=== PATIENT | male | born 1990 | race Caucasian/White ===

== ENCOUNTER 2019-11-11 11:51 | Outpatient (CLI) | payer OTHER, SELFPAY ==
--- NOTE | 2019-11-11 12:05 | XR_ITS ---
WS: [id number] Chest 2 views, 11/11/2019 Clinical Data: FEVER,COUGH Comparison: Portable chest, 01/16/2014. Findings: No nodules, masses or effusions are seen. The heart is normal. The pulmonary vascularity is not increased. No pneumonia or pneumothorax is seen. XR/XR chest 2V* [id number] Impression: Negative chest.
== END 2019-11-11 11:52 | disposition home or self-care (01) ==
LOC: RADWPI 11:57
PROVIDERS: PCP Nurse Practitioner Family; Visit Provider Nurse Practitioner Family
DX: R50.9 Fever, unspecified (principal); R05 Cough
CPT/HCPCS: 71046

== ENCOUNTER 2022-07-25 19:27 | Emergency (ER) | payer OTHER, SELFPAY ==
[2022-07-25 19:33] VITALS: BP 156/95; PULSE 90; RESP 16; TEMP 36.3; O2SAT 97; BMI 23.6
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
[2022-07-25] MEDS: HYDROcodone-acetaminophen 5-325 mg Tablet 1 TAB PO (20:21)
[2022-07-25] MEDS: amoxicillin-clav 875-125 mg Tablet 1 TAB PO (20:21)
== END 2022-07-25 20:27 | disposition home or self-care (01) ==
PROVIDERS: Emergency Provider Nurse Practitioner Family; PCP Nurse Practitioner Family
DX: K04.7 Periapical abscess without sinus (principal)
CPT/HCPCS: 99283

== ENCOUNTER 2023-03-15 19:53 | Emergency (ER) | payer OTHER, SELFPAY ==
[2023-03-15 20:01] VITALS: BP 142/89; PULSE 83; RESP 18; TEMP 36.7; O2SAT 99; BMI 23.6
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
[2023-03-15] MEDS: tetanus-diphtheria tox (adult) 0.5 mL SDV IM (21:01)
[2023-03-15] MEDS: amoxicillin-clav 875-125 mg Tablet 1 TAB PO (22:23)
== END 2023-03-15 22:24 | disposition home or self-care (01) ==
PROVIDERS: Emergency Provider Nurse Practitioner; PCP Nurse Practitioner Family
DX: M25.541 Pain in joints of right hand (principal); S61.411A Laceration without foreign body of right hand, initial encounter; Y04.2XXA Assault by strike against or bumped into by another person, initial encounter; Z23 Encounter for immunization
CPT/HCPCS: 73130; 90471; 90714; 99283

== ENCOUNTER 2023-08-01 22:32 | Emergency (ER) | payer SELFPAY ==
[2023-08-01 22:38] VITALS: BP 148/91; PULSE 93; RESP 20; TEMP 36.3; O2SAT 99; BMI 19.8
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
[2023-08-02 00:34] VITALS: BP 125/78
--- NOTE | 2023-08-04 08:56 | DCPLANNER ---
Referral was sent to ortho on 08/04/23 at 0858. Clinic to contact patient.
== END 2023-08-02 00:36 | disposition home or self-care (01) ==
PROVIDERS: Emergency Provider Nurse Practitioner; PCP Nurse Practitioner Family
DX: S62.314A Displaced fracture of base of fourth metacarpal bone, right hand, initial encounter for closed fracture (principal); Y04.2XXA Assault by strike against or bumped into by another person, initial encounter; Y92.143 Cell of prison as the place of occurrence of the external cause
CPT/HCPCS: 29125; 73100; 73130; 99283

== ENCOUNTER 2025-03-06 12:48 | Inpatient (IN) | payer SELFPAY ==
[2025-03-06 12:52] VITALS: BP 149/85; PULSE 124; RESP 16; TEMP 36.8; O2SAT 100; BMI 22.6
--- OUTSIDE RECORDS SUMMARY | 2025-03-06 12:53 | XMS_ITS | Clinical Summary ---
Author Organization [facility] Address [address] [place]: Epic Prelude ADT SHAZIA RAMIREZ [id number] Care Team Providers Care Casework Manager Name Role Phone Ami Peña MD Primary Care Provider Allergies Active Allergy Reactions Criticality Noted Date Comments Maple Flavor Itching,Swelling High 10/18/2015 Tramadol Nausea and Vomiting Low 11/08/2016 Unclassified Drug Hives High 10/18/2015 Medications gabapentin (NEURONTIN) 300 mg capsule Take 1 Capsule (300 mg) by mouth 3 times daily Start by taking only 1 capsule for the first 2 days. Then take 2 capsules for day 3 & 4, on day 5 you can start taking 3 capsules a day.. 90 Capsule 0 12/31/2016 Active ascorbic acid (VITAMIN C) 500 mg Tablet, Chewable Take 500 mg by mouth daily. 09/19/2016 Active Active Problems Problem Noted Date Diagnosed Date Ligamentous laxity of shoulder 06/04/2016 Superior glenoid labrum lesion of right shoulder 06/04/2016 Acute pain of right shoulder 06/04/2016 Tobacco use 10/18/2015 Resolved Problems Problem Noted Date Diagnosed Date Resolved Date Depression 10/12/2008 10/18/2015 Immunizations Immunization Administration Dates Next Due (M-M-R II/PRIORIX)(12 MO UP) MEASLES, MUMPS AND RUBELLA VIRUS VACCINE, 0.5 ML IM/SUBCUT 01/27/1996,09/24/1994 Dt Dtp Dtap Vaccine 04/02/2006, 6,01/07/1995,1994,03/01/1992 HIB, Unspecified Formulation 09/24/1994,03/01/19 92 Hepatitis B Vaccine 01/14/1996,07/23/1995,1994 IPV/OPV 01/27/1996, 5,09/24/1994,1991 Family History Medical History Relation Name Comments Hypertension Maternal Grandmother Relation Name Status Comments Maternal Grandmother Social History Tobacco Use Types Packs/Day Years Used Date Smoking Tobacco: Every Day Cigarettes Smokeless Tobacco: Former Alcohol Use Standard Drinks/Week Comments No 0 (1 standard drink = 0.6 oz pur e alcohol) Sex and Gender Information Value Date Recorded Sex Assigned at Not on file Legal 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 Gender Identity Not on file Sexual Orientation Not on file Last Filed Vital Signs Vital Sign Reading Time Taken Comments Blood Pressure 114/69 02/11/2017 10:04 AM CDT Pulse 65 02/11/2017 10:04 AM CDT Temperature 37.1 C (98.8 F) 09/30/2016 1:45 PM CHOCOLATE REFINING ROLLER Respiratory Rate 17 09/30/2016 1:00 PM CHOCOLATE REFINING ROLLER Oxygen Saturation - - Inhaled Oxygen Concentration - - Weight 57.6 kg (127 lb) 02/11/2017 10:04 AM CDT Height 175.3 cm (5' 9 ) 02/11/2017 10:04 AM CDT Body Mass Index 18.75 02/11/2017 10:04 AM CDT Plan of Treatment Health Maintenance Due Date Last Done Comments DTAP/TDAP/TD VACCINES (6 - Tdap) 04/02/2016 04/02/2006, 01/27/1996, 01/07/1995, Additional history exists INFLUENZA VACCINE (#1) 2025 HEPATITIS B VACCINES Completed 01/14/1996, 07/23/1995, 06/24/1995 HPV VACCINES Aged Out No longer eligi ble based on patient's age to complete this topic Medical Devices Implanted Type Area Location Man Device Identifier Shelf Expiration Date Model / Serial / Lot Banco Sut Fibertak #2 Fbrwr Ar-3600 - [id number] Implanted:Qty: 1 on 09/30/2016 by Robb Gage III, MD Banco Right: Shoulder [employer] 04/18/2021 AR-3600 / / [id number] B[employer] Sut Fibertak #2 Fbrwr Ar-3600 - [id number] Implanted:Qty: 1 on 09/30/2016 by Robb Gage III, MD Banco Right: Shoulder [employer] 04/18/2021 AR-3600 / / [id number] Anchr Tnds Biocmp Swvlck 7mm [id number] - [id number] Implanted:Qty: 1 on 09/30/2016 by Robb Gage III, MD Banco Right: Shoulder [employer] 05/17/2018 [id number] -[id number] / / [id number] Care Teams Casework Manager Relationship Specialty Start Date End Date Ami Peña MD [address] [id number] PCP - General Family Practice 10/01/16
--- OUTSIDE RECORDS SUMMARY | 2025-03-06 12:53 | XMS_ITS | Clinical Summary ---
Author Organization [facility] (Formerly [facility]) [place] Address [address] [place] [address] Care Team Providers Care Thermodynamics Professor Name Role Phone Ami Peña MD Primary Care Provider Allergies Active Allergy Reactions Criticality Noted Date Comments Maple Flavor Itching,Swelling High 10/18/2015 Tramadol Nausea and Vomiting Low 11/08/2016 Unclassified Drug Hives High 10/18/2015 Medications ascorbic acid, vitamin C, (VITAMIN C) 500 mg Tablet, Chewable Take 500 mg by mouth daily. Active gabapentin (NEURONTIN) 300 mg capsule Take 1 Capsule (300 mg) by mouth 3 times daily Start by taking only 1 capsule for the first 2 days. Then take 2 capsules for day 3 & 4, on day 5 you can start taking 3 capsules a day.. 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 Gender Identity Not on file Sexual Orientation Not on file Occupation Industry Job Start Date Job End Date Not on file Not on file Not on file Not on file Not on file Not on file Not on file Not on file Last Filed Vital Signs Vital Sign Reading Time Taken Comments Blood Pressure 114/69 02/11/2017 10:04 AM CDT Pulse 65 02/11/2017 10:04 AM CDT Temperature 37.1 C (98.8 F) 09/30/2016 1:45 PM ORACLE FINANCIAL APPLICATION DEVELOPER Respiratory Rate 17 09/30/2016 1:00 PM ORACLE FINANCIAL APPLICATION DEVELOPER Oxygen Saturation 94% 09/30/2016 1:45 PM [employer]ACLE FINANCIAL APPLICATION DEVELOPER Inhaled Oxygen Concentration - - Weight 57.6 kg (127 lb) 02/11/2017 10:04 AM CDT Height 175.3 cm (5' 9 ) 02/11/2017 10:04 AM CDT Body Mass Index 18.75 02/11/2017 10:04 AM CDT Plan of Treatment Health Maintenance Due Date Last Done Comments HPV VACCINES (1 - Male 3-dos e series) 12/22/2006 DTAP/TDAP/TD VACCINES (6 - Tdap) 04/02/2016 04/02/2006, 01/27/1996, 01/07/1995, Additional history exists INFLUENZA VACCINE (#1) 2025 HEPATITIS B VACCINES Completed 01/14/1996, 07/23/1995, 06/24/1995 Medical Devices Implanted Type [employer] Device Identifier Shelf Expiration Date Model / Serial / Lot Anchr Tnds Biocmp Swvlck 7mm [id number] - [id number] Implanted:Qty: 1 on 09/30/2016 by Robb Gage III, MD at [facility] [place] Right: Shoulder [employer] 05/17/2018 [id number] -[id number] / / [id number] [place] Sut Fibertak #2 Fbrwr Ar-3600 - [id number] Implanted:Qty: 1 on 09/30/2016 by Robb Gage III, MD at [facility] [place] Right: Shoulder [employer] 04/18/2021 AR-3600 / / [id number] [place] Sut Fibertak #2 Fbrwr Ar-3600 - [id number] Implanted:Qty: 1 on 09/30/2016 by Robb Gage III, MD at [facility] [place] Right: Shoulder [employer] 04/18/2021 AR-3600 / / [id number] Advance Directives For more information, please contact: [phone] * Full Code (Latest Code Status on File) Date Activated Date Inactivated Comments 09/30/2016 8:47 AM 09/30/2016 4:16 PM Care Teams Thermodynamics Professor Relationship Specialty Start Date End Date Ami Peña MD [address] [phone] PCP - General Family Practice 10/01/16
--- OUTSIDE RECORDS SUMMARY | 2025-03-06 12:53 | XMS_ITS | Encounter Summary ---
Author Organization [facility] Address [address] [place] [address] Care Team Providers Care Shot Core Drill Operator Name Role Phone Ami Peña MD Primary Care Provider [phone] Encounter Details Date Type Department Care Team (Latest Contact Info) Description 06/21/2016 Ancillary Orders [facility] Orthoped[facility] - [facility] [address] [place] [address] Fuad Martinez MD [address] [place] [address] Acute pain of right shoulder (Primary Dx); Ligamentous laxity of shoulder, right; Superior glenoid labrum lesion of right shoulder, initial encounter Social History Tobacco Use Types Packs/Day Years Used Date Smoking Tobacco: Every Day Cigarettes E-Cigarette/Mist Inh alation Device Smokeless Tobacco: Former Alcohol Use Standard Drinks/Week Comments No 0 (1 standard drink = 0.6 oz pure alcohol) history of alcohol abuse in childhood Sex and Gender Information Value Date Recorded Sex Assigned at Not on file 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 Exam: XR SHOULDER 2+ VW RIGHT Date/Time of Exam: 06/21/2016 1:56 PM Reason For Exam: Acute pain of right shoulder,Ligamentous laxity of shoulder, right,Superior glenoid labrum lesion of right shoulder, initial encounter. Findings: 0.2 mL Optimark contrast and 5 mL Conray 60 contrast was injected into the right glenohumeral joint. Images confirm the intra-articular injection of contrast. Please see the MRI of the same day. [id number] Narrative Procedure Note Loreta Coyle MD - 06/21/2016 IMPRESSION IMPRESSION: Please see below. Exam: XR SHOULDER 2+ VW RIGHT Date/Time of Exam: 06/21/2016 1:56 PM Reason For Exam: Acute pain of right shoulder,Ligamentous laxity of shoulder, right,Superior glenoid labrum lesion of right shoulder, initial encounter. Findings: 0.2 mL Optimark contrast and 5 mL Conray 60 contrast was injected into the right glenohumeral joint. Images confirm the intra-articular injection of contrast. Please see the MRI of the same day. [id number] Fuad Martinez MD DIAGNOSTIC IMAGING ORDERABLES Final Result documented in this encounter Visit Diagnoses Diagnosis Acute pain of right shoulder- Primary Ligamentous laxity of shoulder, right Superior glenoid labrum lesion of right shoulder, initial encounter Acute pain of right shoulder Ligamentous laxity of shoulder, right Superior glenoid labrum lesion of right shoulder, initial encounter documented in this encounter Care Teams Shot Core Drill Operator Relationship Specialty Start Date End Date Ami Peña MD [address] [phone] PCP - General Family Practice 10/01/16 documented as of this encounter
[2025-03-06 13:17] VITALS: O2SAT 98
--- NOTE | 2025-03-06 13:25 | ED.C_ITS ---
HPI - Psych 2 General: Chief Complaint: Psychiatric Symptoms Stated Complaint: mhe Time Seen by Provider: 03/06/25 12:49 History of Present Illness: This patient is a 34 year old brought in by police. The patient is angry and not forthcoming with history during my interview. He says that his took it too far . He says that he just wanted to take his own medication that is prescribed for him - but didn't tell me why that prompted her to call the police. He told me they were having an arguement. His is also writing an affidavit. The patient is angry because he is on parole and is concerned that him being here is going to make everything worse. Related Data Previous Rx's ?Medication ?Instructions ?Recorded trazodone 50 mg tablet 100 mg (2 x 50 mg) PO .HS MI N 11/03/24 insomnia #60 tabs paroxetine HCl 20 mg tablet (Paxil) 20 mg PO DAILY #30 tabs 12/16/24 Allergies Allergy/AdvReac Type Severity Reaction Status Date / Time No Known Allergies Allergy Verified 12/16/24 13:14 [facility] ED 2 PFSH: Medical History (Updated 03/06/25 @ 18:34 by Sandy Barkley MD) Psychiatric care Physical Exam 2 Const: COMMON NORMALS: alert HENMT: HEAD & SCALP: normal to inspection FACE & SINUS: normal facial exam Eye: GENERAL EYE: appearance normal, both eyes and all related structures Chest: COMMONS NORMALS: normal inspection of the chest Resp: COMMON NORMALS: normal respiratory effort and No use of accessory muscles Extremity: COMMON NORMALS: normal to inspection Neuro: COMMON NORMALS: moves all extremities and no focal motor deficits S ENSORIUM/ORIENTATION: Yes alert Psych: ATTITUDE: Yes Belligerent attititude/behavior present and Yes aggressive MOOD & AFFECT: Yes irritable and Yes Other affect and mood findings present (angry, aggressive) INSIGHT: Limited insight present (Psych) Skin: COMMON NORMALS: no rashes or lesions noted and turgor normal GENERAL SKIN EXAM: no rashes or lesions noted and turgor normal Course 2 Vital Signs: Vital signs: Vital Signs Temperature 98.2 F 03/06/25 14:28 Pulse Rate 94 03/06/25 14:28 Respiratory Rate 18 03/06/25 14:28 Blood Pressure 139/82 03/06/25 14:28 Pulse Oximetry 98 07/20/25 14:28 Oxygen Delivery Me thod Room Air 03/06/25 14:30 MDM - Psych Medical Decision Making Patient's wrote a affidavit reporting his suicidal statements. He will be admitted to the [facility] for further evaluation and treatment. Lab Data 03/06/25 13:23 03/06/25 13:23 Laboratory Results WBC 5.97 10^3/uL (3.29-11.43) 03/06/25 13:23 RBC 5.04 10^6/uL (3.85-5.65) 03/06/25 13:23 Hgb 15.40 g/dL (11.27-16.99) 03/06/25 13:23 Hct 44.4 % (37-53) 03/06/25 13:23 MCV 88.1 fl (82-101) 03/06/25 13:23 MCH 30.6 pg (27-33) 03/06/25 13:23 MCHC 34.7 g/dL (30-55) 03/06/25 13:23 RDW 13.3 % (12.1-15.1) 03/06/25 13:23 Plt Count 341 10^3/cmm (157-399) 03/06/25 13:23 MPV 9.5 fL (7.4-10.4) 03/06/25 13:23 Neut % (Auto) 50.9 % 03/06/25 13:23 Lymph % (Auto) 36.9 % 03/06/25 13:23 Dewey % (Auto) 10.9 % 03/06/25 13:23 Eos % (Auto) 0.8 % 03/06/25 13:23 Baso % (Auto) 0.3 % 03/06/25 13:23 Neut # (Auto) 3.04 10^3/uL (1.8-7.7) 03/06/25 13:23 Lymph # (Auto) 2.2 10^3/uL (0.8-4.8) 03/06/25 13:23 Dewey # (Auto) 0.7 10^3/uL (0.2-0.9) 03/06/25 13:23 Eos # (Auto) 0.1 10^3/uL (0.0-0.8) 03/06/25 13:23 Baso # (Auto) 0.0 10^3/uL (0.0-0.1) 03/06/25 13:23 Nucleated RBC % (auto) 0 % 03/06/25 13:23 Nucleated RBCs # 0.0 /100WBC 03/06/25 13:23 Sodium 143 mmol/L (136-145) 03/06/25 13:23 Potassium 3.9 mmol/L (3.5-5.1) 03/06/25 13:23 Chloride 104 mmol/L (98-107) 03/06/25 13:23 Carbon Dioxide 27 mmol/L (22-29) 03/06/25 13:23 Anion Gap 15.9 (5-19) 03/06/25 13:23 BUN 20 mg/dL (6-20) 03/06/25 13:23 Creatinine 0.7 mg/dL (0.7-1.2) 03/06/25 13:23 GFR Calculation 129.9 mL/min (90-130) 03/06/25 13:23 Glucose 105 mg/dL (65-115) 03/06/25 13:23 Calculated Osmolality 299 mOsm/kg (285-295) H 03/06/25 13:23 Calcium 9.6 mg/dL (8.5-10.5) 03/06/25 13:23 Total Bilirubin 0.6 mg/dL (0.15-1.2) 03/06/25 13:23 AST 22 U/L (0-40) 03/06/25 13:23 ALT 19 U/L (0-41) 03/06/25 13:23 Alkaline Phosphatase 107 U/L (40-130) 03/06/25 13:23 Total Protein 7.7 g/dL (6.6-8.7) 03/06/25 13:23 Albumin 4.7 g/dL (3.5-5.2) 03/06/25 13:23 Globulin 3.0 g/dL (1.3-4.6) 03/06/25 13:23 Salicylates < 0.3 mg/dL (3-10) L 03/06/25 13:23 Acetaminophen < 5.0 ug/mL (10-30) L 03/06/25 13:23 Ethyl Alcohol < 10 mg/dL (0-10) 03/06/25 13:23 All radiology interpretation(s) finalized by discharge Discharge Plan Discharge Patient Disposition: Admitted As Inpatient Admit Provider: John Curtis Clinical Impression: Suicidal ideation Condition: Stable Coding Level of Care Code ED Diver Tender for Jessica Christiansen
[2025-03-06 13:39] LABS: Hematocrit 44.4 % (37-53); Hemoglobin 15.40 g/dL (11.27-16.99); Mean Corpuscular HGB Conc 34.7 g/dL (30-55); Mean Corpuscular Hemoglobin 30.6 pg (27-33); Mean Corpuscular Volume 88.1 fl (82-101); Nucleated Red Blood Cells % 0 %; Platelet Count 341 10^3/cmm (157-399); Red Blood Count 5.04 10^6/uL (3.85-5.65); White Blood Count 5.97 10^3/uL (3.29-11.43)
[2025-03-06 13:56] LABS: Alanine Aminotransferase 19 U/L (0-41); Albumin Level 4.7 g/dL (3.5-5.2); Alkaline Phosphatase 107 U/L (40-130); Anion Gap 15.9 (5-19); Aspartate Amino Transferase 22 U/L (0-40); Blood Urea Nitrogen 20 mg/dL (6-20); Calcium 9.6 mg/dL (8.5-10.5); Carbon Dioxide 27 mmol/L (22-29); Chloride 104 mmol/L (98-107); Creatinine Clr Calc Pharmacy 135.1962; Globulin 3.0 g/dL (1.3-4.6); Glucose 105 mg/dL (65-115); Osmolality Calculated 299 mOsm/kg (285-295); Potassium 3.9 mmol/L (3.5-5.1); Sodium 143 mmol/L (136-145); Total Protein 7.7 g/dL (6.6-8.7)
[2025-03-06 13:57] LABS: Acetaminophen < 5.0 ug/mL (10-30); Alcohol Level < 10 mg/dL (0-10); Salicylate < 0.3 mg/dL (3-10)
[2025-03-06 14:28] VITALS: BP 139/82; PULSE 94; RESP 18; TEMP 36.8; O2SAT 98
--- NOTE | 2025-03-06 15:08 | PC.ADMIT ---
[address] [facility] Admission Note: The patient,Codi Suh,34 y/o, was given written information regarding hospital policies, unit procedures and contact persons. Patient's smoking status: . Vital Signs - 8 hr 03/06/25 12:52 03/06/25 13:17 03/06/25 14:30 Temperature 98.2 F Pulse Rate 124 H Respiratory Rate 16 Blood Pressure 149/85 Pulse Oximetry 100 98 Oxygen Delivery Method Room Air Room Air Room Air Pt. was broutht in by police. filled out an affidavit stating he took more than the prescribed amount of Trazadone after a arguement they got into. Pt. is placed on a 96 hr hold and is very aggitated about this and has been mostly uncooperative with the assessment stating he was not going to answer any questions, although he did answer some. Pt. refused to change out in front of signee and POLICE MAGISTRATE. Security was present and pt. did change out in front of security. Security stated pt. has no skin issues and no contraband was on pt. Pt. says he does not have transportation. Security reports pt. has been in retirement before. Pt. denies any suicid attemts presently or in the past. Pt. refused a UA and would not answer any questions about drug or alcohol use. Pt. arrived the NPU at 1428 today.
--- NOTE | 2025-03-06 15:41 | PC.NURSE ---
Security presented with display card writer (warehouse receiver) to read the patient his 96 hour hold rights. Fruit [employer] Nut Cro[employer] Farm Manager began reading them and the patient stated that he didn't want to hear them and that he didn't care ad didn't do anything wrong . Patient became more verbally aggressive asking display card writer and security to leave because we were pissing him off. Security asked patient if they would like a copy of their rights and patient answered no. Security told patient that he would put the rights with his personal belongings.
--- NOTE | 2025-03-06 22:11 | PC.NURSE ---
pt refused vs, charge nurse notified, resp 17
--- NOTE | 2025-03-07 06:43 | PC.NURSE ---
vs not completed per charge nurse resp 16
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
--- NOTE | 2025-03-07 07:56 | PC.NURSE ---
Pt. refused to give UA and stated he would give a UA to his ict help desk officer and him only.
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
[2025-03-07 18:03] VITALS: BP 139/82; PULSE 4; RESP 18; TEMP 36.8; O2SAT 98
== END 2025-03-07 14:04 | disposition left against medical advice (07) | DRG 880 ==
LOC: ER 13:39 → NP 14:20
PROVIDERS: Admitting Provider Psychiatry & Neurology Psychiatry; Emergency Provider Emergency Medicine; PCP Nurse Practitioner Family; Visit Provider Psychiatry & Neurology Psychiatry
DX: F41.1 Generalized anxiety disorder (principal); F15.20 Other stimulant dependence, uncomplicated; R45.851 Suicidal ideations; F12.90 Cannabis use, unspecified, uncomplicated; Z53.29 Procedure and treatment not carried out because of patient's decision for other reasons
CPT/HCPCS: 36415; 80053; 80307; 85025; 97165; 99285

== ENCOUNTER 2025-03-07 15:49 | Inpatient (IN) | payer SELFPAY ==
--- OUTSIDE RECORDS SUMMARY | 2025-03-07 15:56 | XMS_ITS | Clinical Summary ---
Author Organization [facility] Address [address] [place] [place] [address] Care Team Providers Care Assistant Front Desk Manager Name Role Phone Ami Peña MD [...] on file Legal Sex Male 2:50 AM ASSESSMENT CONSULTANT Gender Identity Not on file Sexual Orientation [...] 37.1 C (98.8 F) 09/30/2016 1:45 PM ASSESSMENT CONSULTANT Respiratory Rate 17 09/30/2016 1:00 PM ASSESSMENT CONSULTANT Oxygen Saturation 94% 09/30/2016 1:45 PM ASSESSMENT CONSULTANT Inhaled Oxygen Concentration - - Weight 57.6 [...] 07/23/1995, 06/24/1995 Medical Devices Implanted Type Area Home Office Claims Examiner Device Identifier Shelf Expiration Date Model / Serial / Lot Anchr Tnds Biocmp Swvlck 7mm [id number] - [id number] Implanted:Qty: 1 on 09/30/2016 by Robb Gage III, MD at [facility] Right: Shoulder [employer] 05/17/2018 AR-1662BCC -7 / / [id number] [place] Sut Fibertak #2 Fbrwr Ar-3600 - [id number] Implanted:Qty: 1 on 09/30/2016 by Robb Gage III, MD at [facility] Right: Shoulder [employer] 04/18/2021 AR-3600 / / [id number] [place] Sut Fibertak #2 Fbrwr Ar-3600 - [id number] Implanted:Qty: 1 on 09/30/2016 by Robb Gage III, MD at [facility] Right: Shoulder [employer] 04/18/2021 AR-3600 / / [id number] Advance Directives For more information, please contact: [phone] * Full Code (Latest Code Status on File) Date Activated Date Inactivated Comments 09/30/2016 8:47 AM 09/30/2016 4:16 PM Care Teams Assistant Front Desk Manager Relationship Specialty Start Date End Date Ami Peña MD [address] [id number] PCP - General Family Practice 10/01/16
--- OUTSIDE RECORDS SUMMARY | 2025-03-07 15:56 | XMS_ITS | Clinical Summary ---
Author Organization [facility] Address [address] 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 Gender Identity Not on file Sexual Orientation Not on file Last Filed Vital Signs Vital Sign Reading Time Taken Comments Blood Pressure 114/69 02/11/2017 10:04 AM CDT Pulse 65 02/11/2017 10:04 AM CDT Temperature 37.1 C (98.8 F) 09/30/2016 1:45 PM HAT BODY SORTER Respiratory Rate 17 09/30/2016 1:00 PM HAT BODY SORTER Oxygen Saturation - - Inhaled Oxygen Concentration [...] this topic Medical Devices Implanted Type Area Banana Expert Device Identifier Shelf Expiration Date Model / Serial / Lot [place] Sut Fibertak #2 Fbrwr Ar-3600 - [id number] Implanted:Qty: 1 on 09/30/2016 by Robb Gage III, MD [place] Right: Shoulder [employer] 04/18/2021 AR-3600 / / [id number] [place] Sut Fibertak #2 Fbrwr Ar-3600 - [id number] Implanted:Qty: 1 on 09/30/2016 by Robb Gage III, MD [place] Right: Shoulder [employer] 04/18/2021 AR-3600 / / [id number] Anchr Tnds Biocmp Swvlck 7mm [id number] - [id number] Implanted:Qty: 1 on 09/30/2016 by Robb Gage III, MD [place] Right: Shoulder [employer] 05/17/2018 AR-1662BCC -7 / / [id number] Care Teams Concrete Products Dispatcher Relationship Specialty Start Date End Date Ami Peña MD [address] [id number] PCP - General Family Practice 10/01/16
--- OUTSIDE RECORDS SUMMARY | 2025-03-07 15:56 | XMS_ITS | Encounter Summary ---
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 [id number] Narrative Procedure Note Loreta Coyle MD - [...] see the MRI of the same day. [id number] Fuad Martinez MD DIAGNOSTIC IMAGING ORDERABLES Final Result documented in this encounter Visit Diagnoses Diagnosis Acute pain of right shoulder- Primary Ligamentous laxity of shoulder, right Superior glenoid labrum lesion of right shoulder, initial encounter Acute pain of right shoulder Ligamentous laxity of shoulder, right Superior glenoid labrum lesion of right shoulder, initial encounter documented in this encounter Care Teams Condenser Winder Relationship Specialty Start Date End Date Ami Peña MD [address] [phone] PCP - General Family Practice 10/01/16 documented as of this encounter
[2025-03-07 15:57] VITALS: BP 116/89; PULSE 80; RESP 16; TEMP 37.3; O2SAT 97
--- NOTE | 2025-03-07 15:58 | ED.C_ITS ---
HPI - Psych General: Chief Complaint: Psychiatric Symptoms Stated Complaint: 96 HOLD Time Seen by Provider: 03/07/25 15:52 Source: patient and police Limitations: no limitations History of Present Illness: 34-year-old male who had eloped from [facility] this afternoon is currently on a 96-hour hold for suicidality patient was brought back by police he is still on the 96-hour hold he is very angry and combative here. Related Data Previous Rx's ?Medication ?Instructions ?Recorded trazodone 50 mg tablet 100 mg (2 x 50 mg) PO .HS RI N 11/03/24 insomnia #60 tabs paroxetine HCl 20 mg tablet (Paxil) 20 mg PO DAILY #30 tabs 12/16/24 Allergies Allergy/AdvReac Type Severity Reaction Status Date / Time No Known Allergies Allergy Verified 12/16/24 13:14 Review of Systems Const: Denies: fever(s), chills, body aches or change in appetite ENMT: Denies: throat pain or dental pain Card: Denies: chest pain Resp: Denies: dyspnea GI: Denies: abdominal pain, nausea, vomiting or diarrhea Musc: Denies: neck pain or back pain Skin/Breast: Denies: rash Neuro: Denies: headache(s) PFS ED PFSH: Medical History (Updated 03/07/25 @ 16:48 by Zena Montez MD) Psychiatric care Physical Exam Const: COMMON NORMALS: no acute distress, patient oriented x3 and healthy appearing HENMT: COMMON NORMALS: normocephalic and atraumatic HEAD & SCALP: normocep halic and atraumatic Eye: COMMON NORMALS: conjunctivae normal CONJUNCTIVA: Yes conjunctivae normal Neck/C-Spine: COMMON NORMALS: full ROM and supple Chest: COMMONS NORMALS: normal inspection of the chest Resp: COMMON NORMALS: normal respiratory effort Cardio: COMMON NORMALS: regular rate RATE: regular rate Extremity: COMMON NORMALS: normal to inspection and full ROM Neuro: COMMON NORMALS: patient oriented x3, moves all extremities and no focal motor deficits Psych: COMMON NORMALS: mental status grossly normal, Normal thought process present and cooperative THOUGHT PROCESS: Normal thought process present Skin: COMMON NORMALS: no rashes or lesions noted and no wounds GENERAL SKIN EXAM: no rashes or lesions noted Course Vital Signs: Vital signs: Vital Signs Temperature 99.2 F 03/07/25 15:57 Pulse Rate 80 03/07/25 15:57 Respiratory Rate 16 03/07/25 15:57 Blood Pressure 116/89 03/07/25 15:57 Pulse Oximetry 97 03/07/25 15:57 Oxygen Delivery Me thod Room Air 03/07/25 15:57 MDM - Psych Medical Decision Making Patient presents here with suicidal ideations he is on 96 hold spoke to psychiatrist will admit. Medical Records I reviewed the patient's medical records. No radiology studies performed this visit Discharge Plan Discharge Patient Disposition: Admitted As Inpatient Clinical Impression: Suicidal ideation Condition: Stable Coding Level of Care Code ED Administrative Analyst for Jessica Christiansen
[2025-03-07] MEDS: diphenhydrAMINE 50 mg/mL SDV 1mL IM (16:03)
[2025-03-07] MEDS: haloperidol inj 5 mg/mL INJ 1 mL IM (16:04)
[2025-03-07] MEDS: LORazepam 1 MG/0.5 ML injection 2 MG IM (16:04)
--- NOTE | 2025-03-07 16:37 | PC.PHAR ---
last med rec completed 03/06/25. Unsure if pt is taking any medications due to last fill October 2024 for 30ds.
--- NOTE | 2025-03-07 20:44 | PC.NURSE ---
vitals not done, resp 16, nurse notified
--- NOTE | 2025-03-08 06:09 | PC.NURSE ---
vitals not collected, resp. 16, nurse notified
--- NOTE | 2025-03-08 06:56 | W.PM.NPUH&PS ---
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 back to 2008. Here with history of methamphetamine use in the past. Recently nonadherent to medications and possibly having conflicts with his significant other. Patient was able to get the window pulled off in his room and jumped out the window and absconded from the hospital but was found and brought back the same day. The patient does not believe there is a need for hospitalization 1. Consider mood stabilizer/antipsychotic. 2. Continue to-15 minute checks, 3.? Encourage individual, group and milieu therapy. 4.? Will attempt to gather collateral information. 5. Encourage sober living treatment after discharge at the highest level care to which he is willing to commit. 6. Observe against the backdrop of the 96-hour hold. Unlikely we will be able to avoid a 21-day hold. PDMP PDMP Reviewed: Not Reviewed Attestations NPU Medical Necessity Statement*: Inpatient hospitalization is medically necessary and the clinically appropriate intervention at this time.? We will monitor/initiate medications and make changes as indicated.? The patient will be in the hospital for over 2 midnights.? The patient?s likely length of stay 5-7 days. Coding Level of Care Code Acute Code for g Fwd Diagnoses Generalized anxiety disorder F41.1 Cannabis use disorder F12.90 Methamphetamine dependence F15.20 Suicidal ideation R45.851
[2025-03-08 14:00] VITALS: BP 120/72; PULSE 108; RESP 15; TEMP 36.9; O2SAT 98
[2025-03-08 18:10] LABS: PCP Screen Urine Negative (Negative)
--- NOTE | 2025-03-08 20:39 | PC.NURSE ---
vitals no done, resp. 16, nurse notified
--- NOTE | 2025-03-09 05:48 | PC.NURSE ---
vitals not collected, nurse notified, resp. 16
[2025-03-09 14:00] VITALS: BP 108/65; PULSE 117; RESP 18; TEMP 36.6; O2SAT 98
--- NOTE | 2025-03-09 14:51 | P.NPUPN_ITS ---
Subjective NPU Subjective: Patient presented today continuing to be fairly resistant to conversation and frustrated about being here. He tried to downplay his drug use and reports that he really had not been using that much since he got out of long term. We discussed his chances for making things worse forms of again if he did not reengage in some kind of sober living treatment. He denied any side effects to medication Mental Status Exam MSE Comments: This is a well-nourished well-developed white male in hospital scrubs with adequate grooming but poor eye contact. No abnormal movements except for psychomotor retardation. Somewhat cooperative with exam in moderate distress. Speech was decreased rate and volume. Mood described as fine, affect quite irritable. Thought process linear. Thought content: Patient denied suicidal or homicidal ideation, there were no delusions reported or noted, he denied any auditory or visual hallucinations. Attention and concentration were limited and memory was unreliable but likely purposefully so but no more formally tested. He is alert and oriented x 3. Insight, judgment and impulse control are all impaired. Vitals/I&O/Wt Last Vital Signs Temp 98.4 F 03/08/25 14:00 Pulse 108 H 03/08/25 14:00 Resp 15 03/08/25 14:00 BP 120/72 03/08/25 14:00 Pulse Ox 98 03/08/25 14:00 O2 Del Method Room Air 03/07/25 19:29 A&P Assessment and plan 1. Generalized anxiety disorder: 2. Cannabis use disorder: 3. Methamphetamine dependence: 4. Suicidal ideation: Plan: This is a 34-year-old white male with past mental health treatment noted from documentation in the records from past interactions at [facility] with no inpatient hospitalization but multiple encounters with [facility] going back to 2008. Here with history of methamphetamine use in the past. Recently nonadherent to medications and possibly having conflicts with his significant other. Patient was able to get the window pulled off in his room and jumped out the window and absconded from the hospital but was found and brought back the same day. The patient does not believe there is a need for hospitalization 1. Consider mood stabilizer/antipsychotic. 2. Continue to-15 minute checks, 3.? Encourage individual, group and milieu therapy. 4.? Will attempt to gather collateral information. 5. Encourage sober living treatment after discharge at the highest level care to which he is willing to commit. 6. Observe against the backdrop of the 96-hour hold. Unlikely we will be able to avoid a 21-day hold. PDMP PDMP Reviewed: Not Reviewed Involuntary Hold Information Hold Status: Legal Status: 96 Hour Hold Attestations NPU Medical Necessity Statement*: Inpatient hospitalization is medically necessary and the clinically appropriate intervention at this time.? We will monitor/initiate medications and make changes as indicated.? The patient?s likely length of stay 5-7 days. Coding Level of Care Code Acute Code for [facility] Fwd Diagnoses Generalized anxiety disorder F41.1 Cannabis use disorder F12.90 Methamphetamine dependence F15.20 Suicidal ideation R45.851
[2025-03-09 20:56] VITALS: BP 112/80; PULSE 99; RESP 16; TEMP 36.9; O2SAT 100
[2025-03-10 06:00] VITALS: BP 100/66; PULSE 92; RESP 16; TEMP 36.4; O2SAT 99
[2025-03-10 14:00] VITALS: BP 113/74; PULSE 117; RESP 17; TEMP 36.8; O2SAT 99
--- NOTE | 2025-03-10 19:51 | P.NPUPN_ITS ---
Subjective NPU Subjective: Patient presented today reporting that he is going go back to [facility] for his treatment. However he did not have any clear indication of how he was going to manage his sober living. He reports that this was a one-time situation and that marijuana is legal. He denied any side effects of the medication and was continuing to be ambivalent about addiction follow-up per staff reports and direct conversation. Mental Status Exam MSE Comments: This is a well-nourished well-developed white male in hospital scrubs with adequate grooming but poor eye contact. No abnormal movements except for psych omotor retardation. Somewhat cooperative with exam in moderate distress. Speech was decreased rate and volume. Mood described as fine, affect quite irritable. Thought process linear. Thought content: Patient denied suicidal or homicidal ideation, there were no delusions reported or noted, he denied any auditory or visual hallucinations. Attention and concentration were limited and memory was unreliable but likely purposefully so but no more formally tested. He is alert and oriented x 3. Insight, judgment and impulse control are all impaired. Vitals/I&O/Wt Last Vital Signs Temp 98.3 F 03/10/25 14:00 Pulse 117 H 03/10/25 14:00 Resp 17 03/10/25 14:00 BP 113/74 03/10/25 14:00 Pulse Ox 99 03/10/25 14:00 O2 Del Method Room Air 03/10/25 14:00 A&P Assessment and plan 1. Generalized anxiety disorder: 2. Cannabis use disorder: 3. Methamphetamine dependence: 4. Suicidal ideation: Plan: This is a 34-year-old white male with past mental health treatment noted from documentation in the records from past interactions at [facility] with no inpatient hospitalization but multiple encounters with [facility] going back to 2008. Here with history of methamphetamine use in the past. Recently nonadherent to medications and possibly having conflicts with his significant other. Patient was able to get the window pulled off in his room and jumped out the window and absconded from the hospital but was found and brought back the same day. The patient does not believe there is a need for hospitalization 1. Consider mood stabilizer/antipsychotic. 2. Continue to-15 minute checks, 3.? Encourage individual, group and milieu therapy. 4.? Will attempt to gather collateral information. 5. Encourage sober living treatment after discharge at the highest level care to which he is willing to commit. 6. Observe against the backdrop of the 96-hour hold. Unlikely we will be able to avoid a 21-day hold. PDMP PDMP Reviewed: Not Reviewed Involuntary Hold Information Hold Status: Legal Status: 96 Hour Hold Date/Time Hold Expires: 03/11/25@0001 Attestations NPU Medical Necessity Statement*: Inpatient hospitalization is medically necessary and the clinically appropriate intervention at this time.? We will monitor/initiate medications and make changes as indicated.? The patient?s likely length of stay 5-7 days. Coding Level of Care Code Acute Code for Chg Fwd Diagnoses Generalized anxiety disorder F41.1 Cannabis use disorder F12.90 Methamphetamine dependence F15.20 Suicidal ideation R45.851
[2025-03-10 20:02] VITALS: BP 138/88; PULSE 99; RESP 16; TEMP 36.9; O2SAT 97
[2025-03-11 06:00] VITALS: BP 106/69; PULSE 66; RESP 16; TEMP 36.6; O2SAT 99
--- NOTE | 2025-03-11 07:05 | PC.NURSE ---
Late Entry 03-07-25 @ 1400 Pt. removed the window out of room 170 and jumped out eloping.
[2025-03-11 14:00] VITALS: BP 120/81; PULSE 91; RESP 18; TEMP 36.6; O2SAT 99
--- NOTE | 2025-03-11 15:01 | PC.NURSE ---
a piece of metal material with two large screws was found on top of pt.'s closet. Material was removed plant ops was called to fix broken toilet.
--- NOTE | 2025-03-11 18:58 | P.NPUPN_ITS ---
Subjective NPU Subjective: Patient presented today reporting that he is doing fine and feels ready to leave but once again was found having tampered with the windows in an apparent attempt to abscond again. He denied that he had done anything for the windows but the windows were starting to be impacted the exact same way he was successful in this assembling the window and breaking out in the brief stay before this 1. He denied any side effects of the medication. Mental Status Exam MSE Comments: This is a well-nourished well-developed white male in hospital scrubs with adequate grooming but poor eye contact. No abnormal movements except for psychomotor retardation. Somewhat cooperative with exam in moderate distress. Speech was decreased rate and volume. Mood described as fine, affect quite irritable. Thought process linear. Thought content: Patient denied suicidal or homicidal ideation, there were no delusions reported or noted, he denied any auditory or visual hallucinations. Attention and concentration were limited and memory was unreliable but likely purposefully so but no more formally tested. He is alert and oriented x 3. Insight, judgment and impulse control are all impaired. Vitals/I&O/Wt Last Vital Signs Temp 98.1 F 03/11/25 20:56 Pulse 91 03/11/25 20:56 Resp 19 H 03/11/25 20:56 BP 127/88 03/11/25 20:56 Pulse Ox 96 03/11/25 20:56 O2 Del Method Room Air 03/11/25 20:56 A&P Assessment and plan 1. Generalized anxiety disorder: 2. Cannabis use disorder: 3. Methamphetamine dependence: 4. Suicidal ideation: Plan: This is a 34-year-old white male with past mental health treatment noted from documentation in the records from past interactions at [facility] with no inpatient hospitalization but multiple encounters with [facility] going back to 2008. Here with history of methamphetamine use in the past. Recently nonadherent to medications and possibly having conflicts with his significant other. Patient was able to get the window pulled off in his room and jumped out the window and absconded from the hospital but was found and brought back the same day. The patient does not believe there is a need for hospitalization 1. Consider mood stabilizer/antipsychotic. 2. Continue to-15 minute checks, 3.? Encourage individual, group and milieu therapy. 4.? Will attempt to gather collateral information. 5. Encourage sober living treatment after discharge at the highest level care to which he is willing to commit. 6. Observe against the backdrop of the 96-hour hold. Unlikely we will be able to avoid a 21-day hold. 21-day paperwork filed. Patient found to be attempting to assemble another window in an attempt to escape. PDMP PDMP Reviewed: Not Reviewed Involuntary Hold Information Hold Status: Legal Status: 96 Hour Hold Date/Time Hold Expires: 03/11/25@0001 Attestations NPU Medical Necessity Statement*: Inpatient hospitalization is medically necessary and the clinically appropriate intervention at this time.? We will monitor/initiate medications and make changes as indicated.? The patient?s likely length of stay 5-7 days. Coding Level of Care Code Acute Code for Chg Fwd Diagnoses Generalized anxiety disorder F41.1 Cannabis use disorder F12.90 Methamphetamine dependence F15.20 Suicidal ideation R45.856
[2025-03-11 20:56] VITALS: BP 127/88; PULSE 91; RESP 19; TEMP 36.7; O2SAT 96
--- NOTE | 2025-03-12 06:40 | PC.NURSE ---
vs not completed per charge nurse, resp 17
[2025-03-12 14:00] VITALS: BP 125/83; PULSE 87; RESP 18; TEMP 37.1; O2SAT 97
[2025-03-12 20:14] VITALS: BP 123/81; PULSE 77; RESP 18; TEMP 36.8; O2SAT 98
--- NOTE | 2025-03-12 21:27 | P.NPUPN_ITS ---
Subjective NPU Subjective: Patient presented today reporting that life is going okay. He discussed the fact that there are no issues at this point and he continues to be ambivalent about drug and alcohol treatment. He reports he will go to [facility]. He denied any side effects with medication. Mental Status Exam MSE Comments: This is a well-nourished well-developed white male in hospital scrubs with adequate grooming but poor eye contact. No abnormal movements except for psychomotor retardation. Somewhat cooperative with exam in moderate distress. Speech was decreased rate and volume. Mood described as fine, affect less irritable. Thought process linear. Thought content: Patient denied suicidal or homicidal ideation, there were no delusions reported or noted, he denied any auditory or visual hallucinations. Attention and concentration were limited and memory was unreliable but likely purposefully so but no more formally tested. He is alert and oriented x 3. Insight, judgment and impulse control are all impaired. Vitals/I&O/Wt Last Vital Signs Temp 98.2 F 03/12/25 20:14 Pulse 77 03/12/25 20:14 Resp 18 03/12/25 20:14 BP 123/81 03/12/25 20:14 Pulse Ox 98 03/12/25 20:14 O2 Del Method Room Air 03/12/25 20:14 Weight last 48 hrs Weight 64.682 kg A&P Assessment and plan 1. Generalized anxiety disorder: 2. Cannabis use disorder: 3. Methamphetamine dependence: 4. Suicidal ideation: Plan: This is a 34-year-old white male with past mental health treatment noted from documentation in the records from past interactions at [facility] with no inpatient hospitalization but multiple encounters with [facility] going back to 2008. Here with history of methamphetamine use in the past. Recently nonadherent to medications and possibly having conflicts with his significant other. Patient was able to get the window pulled off in his room and jumped out the window and absconded from the hospital but was found and brought back the same day. The patient does not believe there is a need for hospitalization 1. Consider mood stabilizer/antipsychotic. 2. Continue to-15 minute checks, 3.? Encourage individual, group and milieu therapy. 4.? Will attempt to gather collateral information. 5. Encourage sober living treatment after discharge at the highest level care to which he is willing to commit. 6. Observe against the backdrop of the 96-hour hold. Unlikely we will be able to avoid a 21-day hold. 21-day paperwork filed. Patient found to be attempting to assemble another window in an attempt to escape. PDMP PDMP Reviewed: Not Reviewed Involuntary Hold Information Hold Status: Legal Status: 96 Hour Hold Date/Time Hold Expires: 03/11/25 @0001 Attestations NPU Medical Necessity Statement*: Inpatient hospitalization is medically necessary and the clinically appropriate intervention at this time.? We will monitor/initiate medications and make changes as indicated.? The patient?s likely length of stay 4-6 days. Coding Level of Care Code Acute Code for Chg Fwd Diagnoses Generalized anxiety disorder F41.1 Cannabis use disorder F12.90 Methamphetamine dependence F15.20 Suicidal ideation R45.851
[2025-03-13 06:00] VITALS: BP 112/74; PULSE 75; RESP 17; TEMP 36.6; O2SAT 98
--- NOTE | 2025-03-13 08:27 | W.PM.NPUPNS ---
Subjective NPU Subjective: Patient presented today reporting that things are going okay. He reported that he is feeling a little better. Staff reports of less irritability which was noted on direct observation. We discussed the fact that Dr. Emanuel would be here tomorrow and he would start making decisions about what discharge would come. We continue to discuss our belief that sober living treatment would provide some added benefit regardless of his reports of limited use. He denied any side effects to his medication. Mental Status Exam MSE Comments: This is a well-nourished well-developed white male in hospital scrubs with adequate grooming but poor eye contact. No abnormal movements except for improving psychomotor retardation. More cooperative with exam in mild to moderate distress. Speech was decreased rate and volume. Mood described as fine, affect less irritable. Thought process linear. Thought content: Patient denied suicidal or homicidal ideation, there were no delusions reported or noted, he denied any auditory or visual hallucinations. Attention and concentration were limited and memory was unreliable but likely purposefully so but no more formally tested. He is alert and oriented x 3. Insight, judgment and impulse control are all impaired. Vitals/I&O/Wt Last Vital Signs Temp 97.8 F 03/13/25 06:00 Pulse 75 03/13/25 06:00 Resp 17 03/13/25 06:00 BP 112/74 03/13/25 06:00 Pulse Ox 98 03/13/25 06:00 O2 Del Method Room Air 03/13/25 06:00 Weight last 48 hrs Weight 64.682 kg A&P Assessment and plan 1. Generalized anxiety disorder: 2. Cannabis use disorder: 3. Methamphetamine dependence: 4. Suicidal ideation: Plan: This is a 34-year-old white male with past mental health treatment noted from documentation in the records from past interactions at [facility] with no inpatient hospitalization but multiple encounters with [facility] going back to 2008. Here with history of methamphetamine use in the past. Recently nonadherent to medications and possibly having conflicts with his significant other. Patient was able to get the window pulled off in his room and jumped out the window and absconded from the hospital but was found and brought back the same day. The patient does not believe there is a need for hospitalization 1. Consider mood stabilizer/antipsychotic. Continue Paxil. 2. Continue to-15 minute checks, 3.? Encourage individual, group and milieu therapy. 4.? Will attempt to gather collateral information. 5. Encourage sober living treatment after discharge at the highest level care to which he is willing to commit. 6. Observe against the backdrop of the 96-hour hold. Unlikely we will be able to avoid a 21-day hold. 21-day paperwork filed. Patient found to be attempting to assemble another window in an attempt to escape. PDMP PDMP Reviewed: Not Reviewed Involuntary Hold Information Hold Status: Legal Status: 96 Hour Hold Date/Time Hold Expires: 03/11/25@0001 Attestations NPU Medical Necessity Statement*: Inpatient hospitalization is medically necessary and the clinically appropriate intervention at this time.? We will monitor/initiate medications and make changes as indicated.? The patient?s likely length of stay 4-6 days. Coding Level of Care Code Acute Code for Chg Fwd Diagnoses Generalized anxiety disorder F41.1 Cannabis use disorder F12.90 Methamphetamine dependence F15.20 Suicidal ideation R45.850
[2025-03-13 14:00] VITALS: BP 121/75; PULSE 84; RESP 18; TEMP 36.9; O2SAT 97
[2025-03-13 21:40] VITALS: BP 125/86; PULSE 95; RESP 16; TEMP 37.2; O2SAT 98
[2025-03-14 06:00] VITALS: BP 119/78; PULSE 65; RESP 18; TEMP 36.6; O2SAT 98
--- NOTE | 2025-03-14 09:09 | PC.NURSE ---
Pt. gave Permission for probation and parole to be notified when he leaves.
--- NOTE | 2025-03-14 12:56 | PC.NURSE ---
Pt off unit for [address]
[2025-03-14 14:00] VITALS: BP 138/89; PULSE 113; RESP 18; TEMP 36.7; O2SAT 98
--- NOTE | 2025-03-14 14:51 | W.PM.NPUDCS ---
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 adequate and his impulse control was adequate on discharge. Discharge Data Studies Completed and Pending: Laboratory Results Urine Opiates Scre en Negative ng/mL (N egative) 03/08/25 17:10 Ur Barbiturates Sc reen Negative ng/mL (N egative) 03/08/25 17:10 Ur Phencyclidine S crn Negative ng/mL (N egative) 03/08/25 17:10 Ur Amphetamines Sc reen Positive ng/mL (N egative) H 03/08/25 17:10 U Benzodiazepines Scrn Positive ng/mL (N egative) H 03/08/25 17:10 Urine Cocaine Scre en Negative ng/mL (N egative) 03/08/25 17:10 U Marijuana (THC) Screen Positive ng/mL (N egative) H 03/08/25 17:10 Vitals: Last Vital Signs Temp 97.8 F 03/14/25 06:00 Pulse 65 03/14/25 06:00 Resp 18 03/14/25 06:00 BP 119/78 03/14/25 06:00 Pulse Ox 98 03/14/25 06:00 O2 Del Method Room Air 03/14/25 06:00 Discharge Plan Discharge Patient Disposition: Home Condition: Stable Prescriptions: Continued trazodone 50 mg tablet 100 mg PO .HS PRN (Reason: insomnia) Qty: 60 2RF paroxetine HCl [Paxil] 20 mg tablet 20 mg PO DAILY Qty: 30 2RF Discharge Order = DC NOW: Discharge Order (Routine); Ordered 03/14/25 Ordered By: Jossue Emanuel Referrals: Kenia Elam FNP [Primary Care Provider, Nurse Practitioner] Omer Turner MD [Physician, Psychiatry] - 03/16/25 2:15 pm Discharge Diet: Usual diet Discharge Activity: Resume usual activity Patient Instructions: Paroxetine (By mouth), Depression (DC), Methamphetamine Use Disorder (DC), Anxiety (DC), Suicide Prevention (DC), Opioid Safety, Patient Portal & [facility] Instructions Discharge Attestations NPU Time Spent in Discharge Care*: less than 30 min Specific Discharge Activities: Specific discharge activities: educating patient, discussing with medical case manager/social workers/dc planners and documenting/other paperwork Coding Level of Care Code Acute Code for Chg Fwd Diagnoses Generalized anxiety disorder F41.1 Cannabis use disorder F12.90 Methamphetamine dependence F15.20 Suicidal ideation R45.851
[2025-03-14 15:12] VITALS: BP 138/89; PULSE 113; RESP 18; TEMP 36.7; O2SAT 98
== END 2025-03-14 15:41 | disposition home or self-care (01) | DRG 880 ==
LOC: ER 17:01 → NP 18:15
PROVIDERS: Admitting Provider Psychiatry & Neurology Psychiatry; Emergency Provider Emergency Medicine; PCP Nurse Practitioner Family; Visit Provider Psychiatry & Neurology Psychiatry
DX: F41.1 Generalized anxiety disorder (principal); R45.851 Suicidal ideations; Z63.0 Problems in relationship with spouse or partner
CPT/HCPCS: 80306; 96372; 97165; 99285; J1200; J1630; J2060; J9999

== ENCOUNTER → 2025-04-06 15:59 | Outpatient (BNVA) | payer SELFPAY | PROVIDERS: PCP Nurse Practitioner Family; Visit Provider Psychiatry & Neurology Psychiatry | DX: Z79.899 Other long term (current) drug therapy (principal); F11.20 Opioid dependence, uncomplicated | CPT/HCPCS: 80307 ==

== ENCOUNTER → 2025-05-26 15:44 | Outpatient (BNVA) | payer OTHER, SELFPAY | PROVIDERS: PCP Nurse Practitioner Family; Visit Provider Psychiatry & Neurology Psychiatry | DX: F11.20 Opioid dependence, uncomplicated (principal); Z79.899 Other long term (current) drug therapy; F15.21 Other stimulant dependence, in remission; F12.21 Cannabis dependence, in remission | CPT/HCPCS: 80307 ==